=== PATIENT | male | born 1985 | race Caucasian/White ===

== ENCOUNTER 2016-06-08 14:28 | Emergency (ER) | payer OTHER ==
[~2016-06-08] VITALS: Ht 182.9 cm; Wt 80.4 kg
[2016-06-08 14:31] VITALS: BP 125/79; TEMP 36.9; Ht 182.9 cm; Wt 80.4 kg
[2016-06-08] MEDS ORDERED: XYLOCAINE 1%/SOD BICARB 20 ML VIAL INFIL ONE (14:45)
[2016-06-08] MEDS ORDERED: MONT1CHW4 PO (14:52)
[2016-06-08] MEDS ORDERED: DIPHTHERIA/TETANUS/PERTUSSIS 0.5 ML SYR/VIAL IM. ONE (15:00)
--- NOTE | 2016-06-08 15:24 | EMERGENCY ROOM VISIT NOTE ---
History First contact with patient: 14:33 Chief Complaint: LACERATION/CUT (SUT/DERMABOND) Stated Complaint: LACERATION-WORK RELATED INJURY Nursing Triage Summary: Triage note: pt reports he was cut by a saw to his right third finger at approx 1400 today. History of Present Illness The patient is a 30 year old male who presents to the Emergency Room with several complaints. The patient states that today he was at work and stepping up to get something and felt a pain in the right posterior calf. He states the pain has continued and is rated a 10/10. He denies any fevers. He is able to walk. He did not fall to the ground. He states that he contacted his mother to bring him to the hospital to evaluate the leg. He states that in the meantime he was using a saw at work and cut his right third finger on the distal aspect. He is able to move the finger. He denies any decreased sensation. He does not believe his tetanus is up-to-date. According to previous documentation, the patient does have a history of heroin abuse. The patient is adamant that he did not inject anything into the leg. Review of Systems A 10 system review of systems was completed with positives and pertinent negatives listed in the HPI. Past Medical/Surgical History Medical Problems: (1) heroin use (2) Opioid dependence (3) Polysubstance dependence (4) substance induced mood disorder Social History Smoking Status: Current Some Day Smoker Alcohol Use: occasionally Drug Use: none Occupation Status: employed Current/Historical Medications Scheduled Albuterol Hfa (Ventolin Hfa), 2-4 PUFFS INH Q6H Atenolol (Tenormin), Unknown Dose PO DAILY Cephalexin Monohydrate (Keflex), 500 MG PO TID Ergocalciferol (Vitamin D 21847 Unit), 50,000 UNIT PO WK Gabapentin (Gabapentin), 600 MG PO TID Meloxicam (Mobic), Unknown Dose PO DAILY Montelukast Sodium (Singulair Chewable), 4 MG PO DAILY Naproxen (Naprosyn), 500 MG PO BID Quetiapine Fumarate (Seroquel), 200 MG PO HS Scheduled PRN Acetaminophen/Codeine (Tylenol W/Codeine #3), 1 TAB PO for Pain Allergies Coded Allergies: Levofloxacin (Verified Allergy, Unknown, ., 06/08/16) Physical Exam Vital Signs Date Time Temp Pulse Resp B/P Pulse Ox O2 Delivery O2 Flow Rate FiO2 06/08/16 14:31 36.9 84 18 125/79 98 Room Air Physical Exam VITALS: Vitals are noted on the nurse's note and reviewed by myself. Vital signs stable. GENERAL: This is a 30-year-old male, in no acute distress, nondiaphoretic, well- developed well-nourished. SKIN: The skin was without rashes, erythema, edema, or bruising. There is no tenting of the skin. Capillary reflex less than 2 seconds. HEAD: Normocephalic atraumatic. EARS: The external ears are normal in appearance. EYES: Pupils equal round and reactive to light and accommodation. Conjunctivae without injection, sclerae without icterus. Extraocular movements intact. NOSE: Patent, turbinates without inflammation or discharge. MOUTH: Mucous membranes moist. Tonsils are not enlarged. Pharynx without erythema or exudate. Uvula midline. Airway patent. Tongue does not deviate. NECK: Supple without nuchal rigidity. No JVD. HEART: Regular rate and rhythm without murmurs gallops or rubs. LUNGS: Clear to auscultation bilaterally without wheezes, rales or rhonchi. No retractions or accessory muscle use. MUSCULOSKELETAL: There is a very small area of erythema to the right popliteal fossa. There is no ecchymosis. There is mild tenderness. There is no calf tenderness. There is no obvious palpable cord. Full range of motion without joint tenderness in all extremities. Normal gait. Strength 5/5 throughout. NEURO: Patient was alert and oriented to person place and time. No focal neurological deficits. Medical Decision & Procedures ER Provider Diagnostic Interpretation: RIGHT THIRD FINGER 3 VIEWS CLINICAL HISTORY: Pain status post laceration COMPARISON: None. DISCUSSION: 3 views reveal no acute fractures or dislocations. There is soft tissue laceration at the level of the tip of the third finger. No radiopaque foreign bodies are visualized. IMPRESSION: Distal soft tissue injury. No evidence of fracture. No foreign bodies identified. ULTRASOUND RIGHT VENOUS DOPP LOWER EXT UNILAT CLINICAL HISTORY: Right leg pain and swelling COMPARISON STUDY: No previous studies for comparison. FINDINGS: Real-time and color flow Doppler imaging were performed. Flow was seen within the femoral, popliteal and calf veins with no intraluminal thrombus demonstrated. The saphenous vein is patent. IMPRESSION: No evidence of right lower extremity DVT Medications Administered Medications (Trade) Dose Ordered Sig/[facility] Route Start Time Stop Time Status Last Admin Dose Admin Lidocaine HCl (Buffered Lidocaine 1% Inj) 20 ml [employer] ONCE INFIL 06/08/16 14:45 06/08/16 14:47 DC 06/08/16 14:45 20 ML Procedure Using sterile technique the wound was cleaned with Betadine. The area was sterilely draped. 5 ml of 1% buffered lidocaine was used to perform a digital block to anesthetize the finger. Once the patient was numb, the wound was copiously irrigated under pressure with sterile saline. The wound was explored and there were no deep structures such as tendons, bone, or ligaments present. The laceration was repaired using 11 simple interrupted 5-0 nylon sutures with the wound edges being well approximated. The patient tolerated the procedure well. The bleeding stopped. The area was cleaned with sterile saline and dressed with bacitracin ointment and bandage. ED Course The patient was seen and examined. Previous visits were reviewed. The patient presented with a 1 cm irregular and jagged laceration to the right third finger. This was repaired as above. An x-ray of the finger does not reveal any foreign body or obvious bony involvement. The patient does have tenderness in the popliteal fossa on the right. There is a small area of erythema. There is no evidence for DVT or superficial thrombophlebitis. There is no fluctuance. The patient is adamant that he has not injected anything into his leg. The patient does not have any fevers. The patient will be placed on Keflex to cover both for the slightly contaminated laceration and for the erythema to the leg. He should try anti-inflammatories. He should return to the ER with any worsening symptoms. He should have the sutures removed in 7-10 days. Medical Decision The differential diagnosis includes open finger fracture, finger fracture, foreign body, finger laceration, DVT, superficial thrombophlebitis, abscess, cellulitis, among others Impression Primary Impression: Laceration Additional Impression: Calf pain Departure Information Dispostion Home / Self-Care Condition GOOD Prescriptions Cephalexin Monohydrate (Keflex) 500 Mg Cap 500 MG PO TID for 7 Days, #21 CAP Prov: Felicita Vale PA-C 06/08/16 Referrals Gonzalez Farmer PA-C (PCP) Patient Instructions Cellulitis - [facility], ED Laceration All, [facility] Additional Instructions Ibuprofen 600 mg every 6-8 hours for moderate pain Keflex every 8 hours for 7 days to treat potential infection in the leg and to prevent infection in the finger Keep wound clean and dry. Do not allow any crusting or dried blood to accumulate on sutures. If this occurs, use a 1:1 solution of hydrogen peroxide/ water on a Q-tip to clean the wound. Use an antibiotic ointment for 3-4 days, then let wound dry. Suture removal in 7-10 days. Return sooner for any signs of infection (increasing redness, swelling, drainage). Ice and elevate for swelling and pain. Keep covered when in sun until sutures removed then SPF 50 or higher for one year. Vitamin E oil if desired two weeks after suture removal for reduction of scar. Problem Qualifiers Additional Impression: Calf pain Laterality: right Qualified Codes: M79.661 - Pain in right lower leg
--- NOTE | 2016-06-08 15:44 | DIAGNOSTIC IMAGING REPORT ---
ULTRASOUND RIGHT VENOUS DOPP LOWER EXT UNILAT CLINICAL HISTORY: Right leg pain and swelling COMPARISON STUDY: No previous studies for comparison. FINDINGS: Real-time and color flow Doppler imaging were performed. Flow was seen within the femoral, popliteal and calf veins with no intraluminal thrombus demonstrated. The saphenous vein is patent. IMPRESSION: No evidence of right lower extremity DVT Electronically signed by: Washington Ying M.D. 06/08/2016 3:43 PM Dictated Date/Time: 06/08/2016 3:43 PM
--- NOTE | 2016-06-08 15:49 | DIAGNOSTIC IMAGING REPORT ---
RIGHT THIRD FINGER 3 VIEWS CLINICAL HISTORY: Pain status post laceration COMPARISON: None. DISCUSSION: 3 views reveal no acute fractures or dislocations. There is soft tissue laceration at the level of the tip of the third finger. No radiopaque foreign bodies are visualized. IMPRESSION: Distal soft tissue injury. No evidence of fracture. No foreign bodies identified. Electronically signed by: Washington Ying M.D. 06/08/2016 3:47 PM Dictated Date/Time: 06/08/2016 3:47 PM
[2016-06-08] MEDS ORDERED: CEPH500C PO (16:00)
[2016-06-08] MEDS ORDERED: IBUPROFEN 600 MG TAB PO STA (16:45)
[2016-06-08 17:00] VITALS: PULSE 78; O2SAT 98
== END 2016-06-08 17:01 | disposition home or self-care (01) ==
LOC: C.EDB 14:29 → C.EDD 17:01
DX: S61.212A Laceration without foreign body of right middle finger without damage to nail, initial encounter (principal); M79.661 Pain in right lower leg; X58.XXXA Exposure to other specified factors, initial encounter; Y99.0 Civilian activity done for income or pay; F11.20 Opioid dependence, uncomplicated; F17.200 Nicotine dependence, unspecified, uncomplicated; Z23 Encounter for immunization

== ENCOUNTER 2016-06-11 12:15 | Emergency (ER) | payer OTHER ==
[~2016-06-11] VITALS: Ht 182.9 cm; Wt 81.2 kg
[~2016-06-11 12:15] MED LIST: CEPH500C PO; MONT1CHW4 PO
[2016-06-11 12:18] VITALS: TEMP 36.5; Ht 182.9 cm; Wt 81.2 kg
[2016-06-11] MEDS ORDERED: SNG10 PO (12:52)
[2016-06-11] MEDS ORDERED: OXYCODONE/ACETAMINOPHEN 5-325 TAB PO STA (12:52)
[2016-06-11] MEDS ORDERED: AMPICILLIN/SULBACTAM SOD INJ 3,000 MG in SODIUM CHLORIDE 0.9% 100ML 100 ML IV STA (13:05)
[2016-06-11 13:20] LABS: BASO % 0.5 %; BASO ABS # 0.03 K/uL (0-0.2); COMPLETE YES; EOS % 3.1 %; HEMATOCRIT 35.6 % (42-52); IG% 0.2 %; LYMPH % 43.9 %; LYMPH ABS # 2.84 K/uL (1.2-3.4); MEAN CELL VOLUME 88.8 fL (80-100); MEAN CORPUSCULAR HEMOGLOBIN 29.9 pg (25-34); MEAN CORPUSCULAR HGB CONC 33.7 g/dl (32-36); MONO % 6.6 %; NEUT % 45.7 %; PLATELET COUNT 213 K/uL (130-400); RED BLOOD COUNT 4.01 M/uL (4.7-6.1); WHITE BLOOD COUNT 6.47 K/uL (4.8-10.8)
[2016-06-11 13:43] LABS: CALCIUM 8.7 mg/dl (8.5-10.1); CREATININE 0.83 mg/dl (0.60-1.40); POTASSIUM 4.1 mmol/L (3.5-5.1)
[2016-06-11] MEDS ORDERED: AMOX875T PO (13:57)
[2016-06-11] MEDS ORDERED: OXYC-57 PO (13:57)
--- NOTE | 2016-06-11 14:00 | EMERGENCY ROOM VISIT NOTE ---
History First contact with patient: 12:28 Chief Complaint: WOUND INFECTION Stated Complaint: RIGHT MIDDLE FINGER History of Present Illness The patient is a 30 year old male who presents to the Emergency Room via private vehicle with complaints of "right middle finger". The patient states that he was here Tuesday for a right middle finger laceration, and believes his fingers noninfected. He states that since then he's been taking the Keflex which he has been prescribed as well as Motrin without relief. He feels that the finger is very swollen now and is waking him up from his sleep. He rates the pain as an 8/10 and points to the distal tip of the right middle finger as a location of the pain. There has been some drainage. There is minimal bleeding. He denies any redness extending up the wrist. The pain extends to the PIP joint. He denies fevers or chills. Review of Systems A complete 6-point Review of Systems was discussed with the patient, with pertinent positives and negatives listed in the History of Present Illness. All remaining Review of Systems questions can be considered negative unless otherwise specified. Past Medical/Surgical History Medical Problems: (1) heroin use (2) Opioid dependence (3) Polysubstance dependence (4) substance induced mood disorder Social History Smoking Status: Current Every Day Smoker Alcohol Use: occasionally Drug Use: none Occupation Status: employed Current/Historical Medications Scheduled Albuterol Hfa (Ventolin Hfa), 2-4 PUFFS INH Q6H Amoxicillin & Pot Clavulanate (Augmentin 875-125 mg), 1 TAB PO BID Atenolol (Tenormin), Unknown Dose PO DAILY Cephalexin Monohydrate (Keflex), 500 MG PO TID Ergocalciferol (Vitamin D 31810 Unit), 50,000 UNIT PO WK Gabapentin (Gabapentin), 600 MG PO TID Meloxicam (Mobic), Unknown Dose PO DAILY Montelukast Sod (Montelukast Sodium), 10 MG PO DAILY Naproxen (Naprosyn), 500 MG PO BID Quetiapine Fumarate (Seroquel), 200 MG PO HS Scheduled PRN Acetaminophen/Codeine (Tylenol W/Codeine #3), 1 TAB PO for Pain Oxycodone/Acetaminophen 5MG/325MG (Percocet 5MG/325MG), 1 TAB PO Q6 PRN for Pain Allergies Coded Allergies: Hydrocodone (Unverified Allergy, Unknown, SWELLING IN FEET, 06/11/16) Levofloxacin (Verified Allergy, Unknown, ., 06/11/16) Tramadol (Unverified Allergy, Unknown, EMOTIONAL, 06/11/16) Physical Exam Vital Signs Date Time Temp Pulse Resp B/P Pulse Ox O2 Delivery O2 Flow Rate FiO2 06/11/16 14:21 56 18 143/97 98 06/11/16 12:18 36.5 58 18 143/91 99 Room Air Physical Exam VITAL SIGNS - Vital signs and nursing notes were reviewed. Patient is afebrile , blood pressure of 143/91, non-tachycardic and saturating well on room air at 99%. GENERAL -30-year-old male appearing his stated age who is in no acute distress. Communicates well with provider and answers questions appropriately. SKIN - Without rashes. There is erythema of the distal right middle finger extending from the PIP distally. There is evidence of intact suture material with minimal infection as evidenced by whitish/yellow skin flap over top. There is no active drainage noted. HEAD - NC/AT. EXTREMITIES - No clubbing or peripheral cyanosis. No pretibial edema present. Patient is vascular intact in the right upper extremity. +5/5 strength noted in UE/LE bilaterally. There is tenderness to palpation overlying the distal right middle finger. No lymphangitic streaking or pain into the hand or wrist. Arm is unremarkable. Medical Decision & Procedures Laboratory Results 06/11/16 13:13 Red Blood Count 4.01, Mean Corpuscular Volume 88.8, Mean Corpuscular Hemoglobin 29.9, Mean Corpuscular Hemoglobin Concent 33.7, Mean Platelet Volume 9.0, Neutrophils (%) (Auto) 45.7, Lymphocytes (%) (Auto) 43.9, Monocytes (%) (Auto) 6.6, Eosinophils (%) (Auto) 3.1, Basophils (%) (Auto) 0.5, Neutrophils # (Auto) 2.96, Lymphocytes # (Auto) 2.84, Monocytes # (Auto) 0.43, Eosinophils # (Auto) 0.20, Basophils # (Auto) 0.03 06/11/16 13:13 Test 06/11/16 13:13 White Blood Count 6.47 K/uL (4.8-10.8) Red Blood Count 4.01 M/uL (4.7-6.1) Hemoglobin 12.0 g/dL (14.0-18.0) Hematocrit 35.6 % (42-52) Mean Corpuscular Volume 88.8 fL (80-100) Mean Corpuscular Hemoglobin 29.9 pg (25-34) Mean Corpuscular Hemoglobin Concent 33.7 g/dl (32-36) Platelet Count 213 K/uL (130-400) Mean Platelet Volume 9.0 fL (7.4-10.4) Neutrophils (%) (Auto) 45.7 % Lymphocytes (%) (Auto) 43.9 % Monocytes (%) (Auto) 6.6 % Eosinophils (%) (Auto) 3.1 % Basophils (%) (Auto) 0.5 % Neutrophils # (Auto) 2.96 K/uL (1.4-6.5) Lymphocytes # (Auto) 2.84 K/uL (1.2-3.4) Monocytes # (Auto) 0.43 K/uL (0.11-0.59) Eosinophils # (Auto) 0.20 K/uL (0-0.5) Basophils # (Auto) 0.03 K/uL (0-0.2) RDW Standard Deviation 43.6 fL (36.4-46.3) RDW Coefficient of Variation 13.4 % (11.5-14.5) Immature Granulocyte % (Auto) 0.2 % Immature Granulocyte # (Auto) 0.01 K/uL (0.00-0.02) Anion Gap 7.0 mmol/L (3-11) Est Creatinine Clear Calc Drug Dose 141.6 ml/min Estimated GFR () 135.9 Estimated GFR (Non- 117.2 BUN/Creatinine Ratio 14.0 (10-20) Calcium Level 8.7 mg/dl (8.5-10.1) Medications Administered Medications (Trade) Dose Ordered Sig/[facility] Route Start Time Stop Time Status Last Admin Dose Admin Oxycodone/ Acetaminophen 1 tab 1 tab NOW STAT PO 06/11/16 12:52 06/11/16 12:53 DC 06/11/16 13:03 1 TAB Ampicillin Sodium/ Sulbactam Sodium/ Sodium Chloride (Unasyn Inj/Nss 100ml) 108 ml @ 200 mls/hr NOW STAT IV 06/11/16 13:05 06/11/16 13:37 DC 06/11/16 13:30 200 MLS/HR Medical Decision Patient was seen and evaluated as above. After obtaining a thorough history and physical examination IV access obtained and a CBC, PRP, Percocet tablet and 3 g of Unasyn were given secondary to subjective and objective examination findings. Patient noted that he would like something for his pain and was not driving and it was identified that he has had Percocet in the past without difficulty. Patient has a cellulitis of his recent laceration repair and appeared to fail outpatient oral antibiotic management with Keflex. Because of this finding I did give him 3 g of Unasyn. He was reevaluated and noted be feeling better after the pain medication. He was also evaluated by my attending. I did elect to remove 3 or 4 of the sutures to help alleviate some of the pressure at the distal tip of the right third digit. He will be discharged with Augmentin 1 tab by mouth twice a day 10 days. He is to return with any worsening of symptoms. This was discussed in great detail. The patient requested something for pain at home and it was evident that he had already had Tylenol with codeine prescribed therefore only gave him 10 tablets of Percocet for his breakthrough pain. He was instructed to not drive or operate machinery while on these medications. He is to take the Augmentin. He is to follow-up with a hand specialist by calling the phone number he was provided today. He again is to return with any new/concerning symptoms. He was educated upon worrisome symptoms in which to return, had questions answered prior to discharge, and was discharged home in good condition. CBC reveals no leukocytosis but slight anemia. PRP was unremarkable. There was no evidence of abscess. Patient was afebrile and I believe can be managed in the outpatient setting. He was instructed to return if worsening of his symptoms for potential additional IV antibiotics. In evaluation treatment of this patient the following differential diagnoses were entertained: Cellulitis, sepsis, abscess, among others. [place] Drug Monitoring Program Search Results: patient reviewed within database, see additional documentation Impression Primary Impression: Cellulitis Additional Impression: Anemia Departure Information Dispostion Home / Self-Care Condition GOOD Prescriptions Oxycodone/Acetaminophen 5MG/325MG (PERCOCET 5MG/325MG) Tab 1 TAB PO Q6 Y for Pain, #10 TAB For Initial Treatment Prov: Manjinder Rosa PA-C 06/11/16 Amoxicillin & Pot Clavulanate (Augmentin 875-125 mg) 1 Tab Tab 1 TAB PO BID for 10 Days, #20 TAB Prov: Manjinder Rosa PA-C 06/11/16 Referrals Gonzalez Farmer PA-C (PCP) Placido Blake MD Patient Instructions [facility] Additional Instructions You were seen in the emergency Department for an infection of your finger. You were given 3 g of Unasyn here. 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 This is one tablet twice daily for 10 days. You've been given the number for orthopedic hand specialist. Please call the number as soon as possible schedule follow-up and tell them you were seen here in the emergency department. Please refer to your initial paperwork regarding management of the sutures and removal. If the redness, swelling and pain would worsen please return to the emergency Department immediately. You were slightly anemic here today. These have these labs repeated with your family doctor. Please return to the emergency department with any new/concerning symptoms.. Problem Qualifiers Primary Impression: Cellulitis Site of cellulitis: extremity Site of cellulitis of extremity: finger Laterality: right Qualified Codes: L03.011 - Cellulitis of right finger
[2016-06-11 14:21] VITALS: BP 143/97; PULSE 56; O2SAT 98
[2016-06-11] MEDS ORDERED: ACET-749 PO (14:52)
[2016-06-11] MEDS ORDERED: NRN600 PO (14:52)
[2016-06-11] MEDS ORDERED: ERGO500037 PO (14:52)
[2016-06-11] MEDS ORDERED: ATEN-173 PO (14:52)
[2016-06-11] MEDS ORDERED: NAPR-1169 PO (14:52)
[2016-06-11] MEDS ORDERED: MELO7.5T7 PO (14:52)
[2016-06-11] MEDS ORDERED: VNTHFA/IN INH (14:52)
[2016-06-11] MEDS ORDERED: SRQ200 PO (14:52)
== END 2016-06-11 14:22 | disposition home or self-care (01) ==
LOC: C.EDB 12:16 → C.EDD 14:22
DX: L03.011 Cellulitis of right finger (principal); D64.9 Anemia, unspecified; F11.10 Opioid abuse, uncomplicated; F17.200 Nicotine dependence, unspecified, uncomplicated

== ENCOUNTER 2016-10-21 23:06 | Emergency (ER) | payer OTHER ==
[~2016-10-21] VITALS: Ht 182.9 cm; Wt 76.4 kg
[~2016-10-21 23:06] MED LIST changes: +ACET-749 PO; +ATEN-173 PO; -CEPH500C PO; +ERGO500037 PO; +MELO7.5T7 PO; -MONT1CHW4 PO; +NAPR-1169 PO; +NRN600 PO; +OXYC-57 PO; +SNG10 PO; +SRQ200 PO; +VNTHFA/IN INH
[2016-10-21 23:26] VITALS: TEMP 36.8; Ht 182.9 cm; Wt 76.4 kg
[2016-10-21] MEDS ORDERED: OXYCODONE/ACETAMINOPHEN 5-325 TAB PO STA (23:44)
[2016-10-22] MEDS ORDERED: PERCOCET HOME PACK PO STA (00:15)
[2016-10-22] MEDS ORDERED: OXYC-57 PO (00:18)
--- NOTE | 2016-10-22 00:21 | EMERGENCY ROOM VISIT NOTE ---
History First contact with patient: 23:30 Chief Complaint: LEG PAIN,LEG INJURY Stated Complaint: RT ANKLE AND CALF GOT HIT DURING BASEBALL GAME History of Present Illness The patient is a 31 year old male who presents to the Emergency Room via private vehicle with complaints of "right ankle and calf got hit during baseball game". The patient states that this evening around 7:30 PM, he was playing right feel, when he collided with a second baseman. He states that their cleats locked, causing him to roll his ankle, and some squiggly developed pain in the right lateral proximal calf. He has tried ice and heat with minimal relief. He did take a gabapentin tablet which was not helpful. He rates the pain as an 8/10 and is "killer". He states he has also tried lidocaine cream without relief. He denies any fevers, chills, nausea, headache , loss of consciousness, striking his head. Review of Systems A complete 6-point Review of Systems was discussed with the patient, with pertinent positives and negatives listed in the History of Present Illness. All remaining Review of Systems questions can be considered negative unless otherwise specified. Past Medical/Surgical History Medical Problems: (1) heroin use (2) Opioid dependence (3) Polysubstance dependence (4) substance induced mood disorder Family History No pertinent family history at this time. Social History Smoking Status: Former Smoker Alcohol Use: occasionally Drug Use: none Occupation Status: employed Current/Historical Medications Scheduled Albuterol Hfa (Ventolin Hfa), 2-4 PUFFS INH Q6H Atenolol (Tenormin), Unknown Dose PO DAILY Ergocalciferol (Vitamin D 31636 Unit), 50,000 UNIT PO WK Gabapentin (Gabapentin), 600 MG PO TID Meloxicam (Mobic), Unknown Dose PO DAILY Montelukast Sod (Montelukast Sodium), 10 MG PO DAILY Naproxen (Naprosyn), 500 MG PO BID Quetiapine Fumarate (Seroquel), 200 MG PO HS Scheduled PRN Acetaminophen/Codeine (Tylenol W/Codeine #3), 1 TAB PO for Pain Oxycodone/Acetaminophen 5MG/325MG (Percocet 5MG/325MG), 1 TAB PO Q6 PRN for Pain Oxycodone/Acetaminophen 5MG/325MG (Percocet 5MG/325MG), 1 TAB PO Q6 PRN for Pain Allergies Coded Allergies: Hydrocodone (Unverified Allergy, Unknown, SWELLING IN FEET, 06/11/16) Levofloxacin (Verified Allergy, Unknown, ., 06/11/16) Tramadol (Unverified Allergy, Unknown, EMOTIONAL, 06/11/16) Physical Exam Vital Signs Date Time Temp Pulse Resp B/P (MAP) Pulse Ox O2 Delivery O2 Flow Rate FiO2 10/22/16 01:25 78 20 128/72 98 10/21/16 23:26 36.8 85 18 124/80 95 Room Air Physical Exam VITAL SIGNS - Vital signs and nursing notes were reviewed. Patient is afebrile , normotensive, non-tachycardic and saturating well on room air 95%. GENERAL -31-year-old male appearing his stated age who is in no acute distress. Communicates well with provider and answers questions appropriately. SKIN - Without rashes. Skin overlying the right leg is intact. EXTREMITIES - No clubbing or peripheral cyanosis. No pretibial edema present. There is a palpable step-off in the right proximal fibular region. There is tenderness to this region as well as extending down the calf. No evidence of compartment syndrome. He is neurovascularly intact in this extremity. There is tenderness to palpation overlying the ankle joint. Medical Decision & Procedures ER Provider Diagnostic Interpretation: X-ray of the right tibia and fibula as well as right ankle are obtained. As read by myself, there is a mildly displaced right proximal fibular fracture that is in near anatomic alignment. No fracture of the tibia. Ankle unremarkable. Medications Administered Medications (Trade) Dose Ordered Sig/Halle Route Start Time Stop Time Status Last Admin Dose Admin Oxycodone/ Acetaminophen (Percocet 5-325mg Tab) 1 tab NOW STAT PO 10/21/16 23:44 10/21/16 23:45 DC 10/21/16 23:44 1 TAB Oxycodone/ Acetaminophen (Percocet 5/ 325MG Home Pack) 1 homepack UD STAT PO 10/22/16 00:15 10/22/16 00:18 DC 10/22/16 00:46 1 HOMEPACK Medical Decision Patient was seen and evaluated as above. After obtaining a thorough history and physical examination radiographs were obtained of the affected regions. There is a proximal fibular fracture, this is closed. No evidence of compartment syndrome. He was educated upon worrisome symptoms of compartment syndrome. He is to return if he develops these. He was given 1 Percocet tablet for his pain after verifying that he can take these without allergy. I did discuss the case with my attending, and after discussing whether or not to use a knee immobilizer or Ortho-Glass splint the decision was made to utilize an Ortho-Glass splint. A posterior long-leg splint was affixed, with good fit. He was provided crutches and educated on use. He'll be given a short-term prescription for Percocet secondary to his fracture and pain. He is to follow- up with orthopedics tomorrow by calling first thing with number provided. He was educated upon worrisome symptoms which to return, had questions prior to discharge, and was discharged home in good condition. In the evaluation treatment this patient following differential diagnoses entertained: Knee sprain, fibular fracture, ankle fracture, among others. [facility] Drug Monitoring Program Search Results: patient reviewed within database, no issues identified Impression Primary Impression: Fracture, fibula, proximal Departure Information Dispostion Home / Self-Care Condition GOOD Prescriptions Oxycodone/Acetaminophen 5MG/325MG (PERCOCET 5MG/325MG) Tab 1 TAB PO Q6 Y for Pain, #10 TAB For Initial Treatment Prov: Manjinder Rosa PA-C 10/22/16 Referrals No Doctor, Assigned (PCP) Jamie Gurrola M.D. Patient Instructions My [facility] Additional Instructions You have been treated in the Emergency Department for knee pain. You have received pain medicine in the emergency department which impairs your ability to operate a vehicle. It is illegal for you to drive after receiving these medicines. You have been prescribed PERCOCET to be used for pain control. This is a narcotic medication. You cannot drive or consume alcohol while on this medicine. This medicine should only be used for pain that cannot be controlled with [id number] pain medicines. Please do not take the Tylenol with the Percocet. For pain control, you can use the following xcoc-ejh-bjdzrss medicines (if >12 yo): - Regular strength (325mg/tab) Tylenol (acetaminophen) 2 tabs every 4-6 hours as needed. Do not exceed 12 tablets in a 24 hour period. Avoid taking more than 3 grams (3000 mg) of Tylenol per day. This includes any other sources of acetaminophen you may take on a regular basis. Please do not take the Tylenol with the Percocet. - Regular strength (200 mg/tab) Advil (ibuprofen) 1-2 tabs every 4-6 hours as needed. Do not exceed a dose of 3200 mg per day. If this is a recent injury (<24 hrs), ice can be applied to the area of pain for the first 3 days to help decrease pain and inflammation. Ice massages can be performed by freezing water in a paper cup, peeling back the cup to expose the ice and then massaging over the affected area. You have been provided the number for an Orthopaedic Surgeon. You should call this number as soon as possible to establish a follow-up visit from today's Emergency Department visit. Keep the knee brace in place until cleared by Orthopedics. Use the crutches you have been provided to keep ALL weight off of the knee until weight bearing is tolerable. Return to the Emergency Department if your current symptoms worsen despite treatment course outlined above. Please return to the emergency department with any new/concerning symptoms.
[2016-10-22 01:25] VITALS: BP 128/72; PULSE 78; O2SAT 98
--- NOTE | 2016-10-22 06:38 | DIAGNOSTIC IMAGING REPORT ---
RIGHT ANKLE MIN 3 VIEWS ROUTINE CLINICAL HISTORY: Right leg trauma, ankle pain Right trauma COMPARISON: None. DISCUSSION: The bones and joint spaces appear intact. There is no evidence of fracture, dislocation or bony disease. There is no evidence for soft tissue swelling. IMPRESSION: Negative study. Electronically signed by: Fausto Danielson M.D. 10/22/2016 6:37 AM Dictated Date/Time: 10/22/2016 6:34 AM
--- NOTE | 2016-10-22 06:42 | DIAGNOSTIC IMAGING REPORT ---
RIGHT TIBIA/FIBULA 2 VIEWS ROUTINE CLINICAL HISTORY: Right leg trauma, proximal fibula Right COMPARISON: None. DISCUSSION: Oblique fracture proximal fibula. Remaining osseous structures are unremarkable. Mild soft tissue edema. IMPRESSION: Oblique fracture proximal fibula. Electronically signed by: Fausto Danielson M.D. 10/22/2016 6:41 AM Dictated Date/Time: 10/22/2016 6:40 AM
== END 2016-10-22 01:30 | disposition home or self-care (01) ==
LOC: C.EDB 23:08 → C.EDC 10-22 01:30
DX: S82.401A Unspecified fracture of shaft of right fibula, initial encounter for closed fracture (principal); Y93.64 Activity, baseball; W51.XXXA Accidental striking against or bumped into by another person, initial encounter; Y92.320 Baseball field as the place of occurrence of the external cause; F11.10 Opioid abuse, uncomplicated; Z87.891 Personal history of nicotine dependence; Z79.899 Other long term (current) drug therapy

== ENCOUNTER 2016-11-02 14:30 | Emergency (ER) | payer SELFPAY ==
[~2016-11-02] VITALS: Ht 182.9 cm; Wt 77.5 kg
[2016-11-02 14:32] VITALS: TEMP 36.6; Ht 182.9 cm; Wt 77.5 kg
[2016-11-02] MEDS ORDERED: OXYCODONE HCL IR 5 MG TAB (IMMEDIATE RELEASE) PO STA (14:52)
--- NOTE | 2016-11-02 15:52 | DIAGNOSTIC IMAGING REPORT ---
ULTRASOUND RIGHT LOWER EXTREMITY VENOUS CLINICAL HISTORY: Right leg pain. COMPARISON STUDY: Right lower extremity venous ultrasound dated 06/08/2016. TECHNIQUE: Real-time, grayscale, and color Doppler sonography of the deep veins of the right lower extremity was performed from the inguinal crease to the calf. Compression and augmentation were utilized. FINDINGS: There is no sonographic evidence of deep venous thrombosis identified in the right lower extremity. The common femoral, superficial femoral, and popliteal veins are patent and normally compressible. The greater saphenous vein and the profunda femoris vein at the junction with the common femoral vein are clear. The visualized calf veins are patent. IMPRESSION: There is no sonographic evidence of deep venous thrombosis identified in the right lower extremity. Electronically signed by: Timothy Scott M.D. 11/02/2016 3:51 PM Dictated Date/Time: 11/02/2016 3:41 PM
[2016-11-02] MEDS ORDERED: ACET300T2 PO (16:40)
--- NOTE | 2016-11-02 16:43 | EMERGENCY ROOM VISIT NOTE ---
History First contact with patient: 14:37 Chief Complaint: LEG PAIN,LEG INJURY Stated Complaint: PAIN/SWELLING TO RIGHT LEG History of Present Illness The patient is a 31 year old male who presents to the Emergency Room with complaints of right leg pain and swelling. The patient states that he sustained a proximal fibula fracture on 10/21/16. He followed up with orthopedics 1 week ago and states that they placed him in a knee brace and on crutches. He states that since then, he has had intermittent swelling of the legs, pain in the outside of the leg and feeling like his leg is cold. He states the pain has been constant over the past one week and rates the discomfort an 8.5/10. He reports that they prescribed him naproxen which he has been taking without relief. He feels like there is redness on the inside of the leg. He denies any history of blood clots. He is not a smoker. He denies any further injuries to the leg. Review of Systems A complete 10 point review of systems was reviewed with the patient with pertinent positives and negatives as per history of present illness. All else were negative. Past Medical/Surgical History Medical Problems: (1) heroin use (2) Opioid dependence (3) Polysubstance dependence (4) substance induced mood disorder Social History Smoking Status: Never Smoker Alcohol Use: occasionally Drug Use: none Occupation Status: employed Current/Historical Medications Scheduled Albuterol Hfa (Ventolin Hfa), 2-4 PUFFS INH Q6H Atenolol (Tenormin), Unknown Dose PO DAILY Ergocalciferol (Vitamin D 72054 Unit), 50,000 UNIT PO WK Gabapentin (Gabapentin), 600 MG PO TID Meloxicam (Mobic), Unknown Dose PO DAILY Montelukast Sod (Montelukast Sodium), 10 MG PO DAILY Naproxen (Naprosyn), 500 MG PO BID Quetiapine Fumarate (Seroquel), 200 MG PO HS Scheduled PRN Acetaminophen W/ Codeine (Tylenol W/Codeine #3), 1 TAB PO Q6H PRN for Pain Acetaminophen/Codeine (Tylenol W/Codeine #3), 1 TAB PO for Pain Allergies Coded Allergies: Hydrocodone (Unverified Allergy, Unknown, SWELLING IN FEET, 11/02/16) Levofloxacin (Verified Allergy, Unknown, ., 11/02/16) Tramadol (Unverified Allergy, Unknown, EMOTIONAL, 11/02/16) Physical Exam Vital Signs Date Time Temp Pulse Resp B/P (MAP) Pulse Ox O2 Delivery O2 Flow Rate FiO2 11/02/16 16:57 68 18 130/83 96 11/02/16 14:32 36.6 93 17 137/84 99 Room Air Physical Exam VITALS: Vitals are noted on the nurse's note and reviewed by myself. Vital signs stable. GENERAL: This is a 31-year-old male, in no acute distress, nondiaphoretic, well- developed well-nourished. HEART: Regular rate and rhythm without murmurs gallops or rubs. LUNGS: Clear to auscultation bilaterally without wheezes, rales or rhonchi. EXTREMITIES: The skin is warm and well-perfused. There is tenderness to palpation of the proximal fibula head. There is mild tenderness along the length of the fibula. There is no erythema noted. Capillary refill within 2 seconds. Dorsalis pedis pulses 2+. NEURO: Patient was alert and oriented to person place and time. Medical Decision & Procedures ER Provider Diagnostic Interpretation: ULTRASOUND RIGHT LOWER EXTREMITY VENOUS CLINICAL HISTORY: Right leg pain. COMPARISON STUDY: Right lower extremity venous ultrasound dated 06/08/2016. TECHNIQUE: Real-time, grayscale, and color Doppler sonography of the deep veins of the right lower extremity was performed from the inguinal crease to the calf. Compression and augmentation were utilized. FINDINGS: There is no sonographic evidence of deep venous thrombosis identified in the right lower extremity. The common femoral, superficial femoral, and popliteal veins are patent and normally compressible. The greater saphenous vein and the profunda femoris vein at the junction with the common femoral vein are clear. The visualized calf veins are patent. IMPRESSION: There is no sonographic evidence of deep venous thrombosis identified in the right lower extremity. Medications Administered Medications (Trade) Dose Ordered Sig/Halle Route Start Time Stop Time Status Last Admin Dose Admin Oxycodone HCl (Roxicodone Immediate Rel Tab) 5 mg NOW STAT PO 11/02/16 14:52 11/02/16 14:54 DC 11/02/16 15:13 5 MG Medical Decision Differential diagnosis includes DVT, superficial thrombosis, compartment syndrome, cellulitis, among others. The patient was evaluated as above. He was given 1 tablet of OxyIR for pain. Ultrasound of the leg was performed and read by radiology with no DVT identified. The patient clinically does not have an exam consistent with compartment syndrome. He has good pulses and normal capillary refill. I believe that his pain is likely just secondary to the fracture that he sustained. He was given a short course of pain medication but instructed to follow-up with orthopedics for any further pain control. He currently sees [facility] orthopedics and was instructed to call them today to schedule a follow-up appointment. He verbalized understanding of my assessment and treatment plan was discharged home in good condition. Medication reconciliation: I attest that I have personally reviewed the patient 's current medication list. Blood Pressure Screening: Patient was found to have a slightly elevated blood pressure due to circumstances. I do not believe that the patient requires hypertension monitoring. [facility] Drug Monitoring Program Search Results: patient reviewed within database (has received monthly rx from PCP in the past; recent rx from ER provider ) Impression Primary Impression: Leg pain, right Departure Information Dispostion Home / Self-Care Condition GOOD Prescriptions Acetaminophen W/ Codeine (TYLENOL W/CODEINE #3) 1 Tab Tab 1 TAB PO Q6H Y for Pain, #8 TAB Prov: Piedad Craig ., SUSAN 11/02/16 Referrals No Doctor, Assigned (PCP) Higinio Cantrell MD Patient Instructions My [facility] Additional Instructions Call [facility] orthopedics to schedule follow up. For pain control, you can use the following asph-bsq-wjyhfit medicines (if >12 yo): - Regular strength (325mg/tab) Tylenol (acetaminophen) 2 tabs every 4-6 hours as needed. Do not exceed 12 tablets in a 24 hour period. Avoid taking more than 4 grams (4000 mg) of Tylenol per day. This includes any other sources of acetaminophen you may take on a regular basis. - Regular strength (200 mg/tab) Advil (ibuprofen) 1-2 tabs every 4-6 hours as needed. Do not exceed a dose of 3200 mg per day. Return here for any worsening or new/concerning symptoms.
[2016-11-02 16:57] VITALS: BP 130/83; PULSE 68; O2SAT 96
== END 2016-11-02 16:59 | disposition home or self-care (01) ==
LOC: C.EDB 14:31
DX: S82.401D Unspecified fracture of shaft of right fibula, subsequent encounter for closed fracture with routine healing (principal); M79.604 Pain in right leg; W51.XXXD Accidental striking against or bumped into by another person, subsequent encounter; F11.10 Opioid abuse, uncomplicated; Z87.891 Personal history of nicotine dependence; Z79.899 Other long term (current) drug therapy

== ENCOUNTER 2020-02-05 01:56 | Inpatient (IN) ==
--- NOTE | 2020-02-05 02:23 | Emergency Department Note ---
Impression & Plan Mood disorder ED Provider Note NAME: NORRIS VERDUGO AGE: 34 SEX: M ARRIVES VIA: Police Cruiser INFORMANT: Patient, [facility] ED PROVIDER(S): Yusra Elder DO CHIEF COMPLAINT: Suicidal and homicidal threats PLAN: Disposition: The patient was signed out to Dr. Bustos at change of shift Condition: Stable MEDICAL DECISION MAKING: This is a 34-year-old male patient brought to the emergency department tonight on a 302 by state police after making threats of self-harm. The patient told his mother that he was going to get a gun to harm himself and his family The patient was medically cleared but was sleeping and difficult to arouse and a full psychiatric evaluation could not be completed. Once he is more awake, he will be evaluated by the ED psychiatric telephonic case manager and disposition will be d etermined. Triage Nursing notes reviewed and agree them. Additional history obtained from [facility] police Prior medical records reviewed Vital Signs: reviewed and unremarkable Differential diagnosis: Drug intoxication, sleep deprivation, mood disorder, thought disorder Laboratory studies: See below HPI: 34/M arrives for evaluation of suicidal threats. The patient explains that he is having relationship issues with his . Apparently she has suffered a recent miscarriage and he states that this was very hard on them. He explained that he was not sure if this child was his or not and they had been arguing about this. He admits that he does frequently make suicidal threats but does not ever plan to act on them. His mother petitioned a 302 and the state police found him passed out in his truck approximately 1 mile away from his home. The petitioning statement noted that the patient threatened to get a gun and harm his family and himself. ROS: See above HPI for pertinent positives & negatives. A total of 10 systems reviewed and were otherwise negative. PAST MEDICAL HISTORY:See Below PAST SURGICAL HISTORY:See Below FAMILY HISTORY:See Below SOCIAL HISTORY:See Below HOME MEDICATIONS:See list ALLERGIES:See list VITALS:See Below PHYSICAL EXAMINATION: HEENT: Head - normocephalic and atraumatic. Eyes-extraocular eye muscles are intact, and sclera are anicteric. There is moderate scleral injection. Nose - moist nasal mucosa without discharge. Neck: Supple; no cervical lymphadenopathy Heart: Regular rate and rhythm. There is a normal S1 and S2 with no murmurs, clicks, or gallops appreciated. Lungs: Clear to auscultation bilaterally with no wheezes, rales, or rhonchi. Abdomen: Soft, completely nontender, nondistended, with good bowel sounds. There are no palpable pulsatile masses or hepatosplenomegaly. There is no guarding, rigidity, or rebound noted. Extremities: No evidence of cyanosis, clubbing, or edema. There are easily palpable peripheral pulses. Skin: warm and dry with good turgor and no rashes. Psych: Normal affect. The patient does seem to be slightly depressed and tired. He does admit to smoking marijuana and using meth 2 days ago. He does admit to cutting himself in the past but no recent suicide attempts. ED COURSE: Times/Reassessments: 0200: The patient was evaluated in room A6. I discussed the case with the [facility] troopers who brought the patient here to the emergency department. Laboratory studies were drawn as above. Patient was medically cleared but was sleeping. He was difficult to arouse and stated that he was exhausted from work yesterday. ED psychiatric telephonic case manager attempted to evaluate the patient but could not carry on a coherent conversation with the patient. 0745: The case was signed out to Dr. Bustos at change of shift awaiting evaluation once the patient was more awake. Yusra Elder DO Past Med/Surg History Medical History (Updated 02/05/20 @ 07:52 by Yusra Elder DO) Anemia Bleeding hemorrhoid Cellulitis Chronic back pain Dental caries Hemorrhoids Hypertension Leg pain, right Opioid dependence on agonist therapy Pain, dental Surgical History History of hernia repair Family History Grandmother Hypertension Grandfather (Paternal) Heart disease Father Stroke Social History Smoking Status: Current every day smoker Tobacco Type: E-cigarettes / Vaping Second Hand Exposure: No; Hx Alcohol Use: No Hx Substance Use: No Preferred Language: French Communication Ability: Effective Reefer Engineer Required: No Beliefs That Will Affect Care: None Current Living Situation: Family and Significant Other current occupational status: employed 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 Feels Safe at Home: Yes Assistive Devices: None Allergies Allergies Allergy/AdvReac Type Severity Reaction Status Date / Time levofloxacin Allergy Severe Anaphylaxis Verified 08/26/19 22:53 hydrocodone Allergy Intermediate SWELLING Verified 08/26/19 22:53 IN FEET tramadol AdvReac Intermediate EMOTIONAL Verified 08/26/19 22:53 Home Meds Home Medications Medication Instructions Recorded Confirmed buprenorphine-naloxone 1 tab SUBLINGUAL BID 07/31/19 02/05/20 gabapentin 800 mg PO QID 07/31/19 02/05/20 Results & Data (ED) Vital Signs Vital Signs - 24 hr 02/05/20 02:00 02/05/20 03:57 Temperature 36.6 C Temperature Source Oral Pulse Rate 72 Pulse Rate [Finger] 65 Respiratory Rate 16 18 Respiratory Effort / Characteristics Non-Labored Spontaneous Non-Labored Spontaneous Respiratory Depth Normal Normal Respiratory Pattern Regular Blood Pressure 126/83 Blood Pressure [Right Arm] 109/64 Blood Pressure Mean 97 Blood Pressure Mean [Right Arm] 79 Blood Pressure Position Sitting Pulse Oximetry 98 98 Oxygen Delivery Method Room Air Room Air Sepsis Recent Fever Within 48 Hours No Sepsis New/Unexplained Change in Mental Status No Sepsis Action Taken by Nursing No Action Required Laboratory Data Result diagrams: 02/05/20 02:34 02/05/20 02:34 Lab Results 02/05/20 02/05/20 02/05/20 Range/Units 02:20 02:20 02:34 WBC 7.28 (4.8-10.8) K/uL RBC 4.55 L (4.7-6.1) M/uL Hgb 13.2 L (14.0-18.0) g/dL Hct 40.0 L (42-52) % MCV 87.9 (80-100) fL MCH 29.0 (25-34) pg MCHC 33.0 (32-36) g/dL RDW Std Deviation 44.7 (36.4-46.3) fL RDW Coeff of Ariadne 13.8 (11.5-14.5) % Plt Count 291 (130-400) K/uL MPV 9.4 (7.4-10.4) fL Immature Gran % (Auto) 0.1 % Neut % (Auto) 49.6 % Lymph % (Auto) 42.7 % Kendall % (Auto) 6.0 % Eos % (Auto) 1.2 % Baso % (Auto) 0.4 % Neut # (Auto) 3.60 (1.4-6.5) K/uL Lymph # (Auto) 3.11 (1.2-3.4) K/uL Kendall # (Auto) 0.44 (0.11-0.59) K/uL Eos # (Auto) 0.09 (0-0.5) K/uL Baso # (Auto) 0.03 (0-0.2) K/uL Immature Gran # (Auto) 0.01 (0.00-0.02) K/uL Sodium (136-145) mmol/L Potassium (3.5-5.1) mmol/L Chloride (98-107) mmol/L Carbon Dioxide (21-32) mmol/L Anion Gap (3-11) BUN (7-18) mg/dl Creatinine (0.6-1.4) mg/dl Est Cr Clr Drug Dosing ml/min Est GFR ( Amer) Est GFR (Non-Af Amer) BUN/Creatinine Ratio (10-20) Glucose (70-99) mg/dl Calcium (8.5-10.1) mg/dl Total Bilirubin (0.2-1) mg/dl AST (15-37) U/L ALT (12-78) U/L Alkaline Phosphatase (45-117) U/L Total Protein (6.4-8.2) gm/dl Albumin (3.4-5.0) gm/dl Globulin (2.5-4.0) gm/dl Albumin/Globulin Ratio (0.9-2) TSH (0.300-4.500) uIu/ml Urine Color Dark Yellow Urine Appearance Clear (Clear) Urine pH 5.0 (4.5-7.5) Ur Specific [place] 1.045 H (1.000-1.030) Urine Protein Trace H (Negative) Urine Glucose (UA) Negative (Negative) Urine Ketones Negative (Negative) Urine Blood Negative (Negative) Urine Nitrite Negative (Negative) Urine Bilirubin Negative (Negative) Urine Urobilinogen Negative (Negative) Ur Leukocyte Esterase Negative (Negative) Urine WBC (Auto) 1-5 (0-5) /hpf Urine RBC (Auto) 0-4 (0-4) /hpf U Hyaline Cast (Auto) 10-30 H (0-5) /lpf U Epithel Cells (Auto) 10-20 H (0-5) /lpf Urine Bacteria (Auto) Negative (Negative) Salicylates (2.8-20) mg/dl Urine Opiates Screen Neg (Neg) Ur Methadone, Qual Neg (Neg) Acetaminophen (10-30) ug/ml Urine Barbiturates Neg (Neg) Ur Phencyclidine (PCP) Neg (Neg) U Amphetamin/Meth Scrn Pos H (Neg) MDMA (Ecstasy) Screen Pos H (Neg) U Benzodiazepines Scrn Neg (Neg) Ur Cocaine Metabolite Neg (Neg) U Marijuana (THC) Screen Pos H (Neg) Ethyl Alcohol mg/dL (0-3) mg/dl 02/05/20 02/05/20 02/05/20 Range/Units 02:34 02:34 02:34 WBC (4.8-10.8) K/uL RBC (4.7-6.1) M/uL Hgb (14.0-18.0) g/dL Hct (42-52) % MCV (80-100) fL MCH (25-34) pg MCHC (32-36) g/dL RDW Std Deviation (36.4-46.3) fL RDW Coeff of Ariadne (11.5-14.5) % Plt Count (130-400) K/uL MPV (7.4-10.4) fL Immature Gran % (Auto) % Neut % (Auto) % Lymph % (Auto) % Kendall % (Auto) % Eos % (Auto) % Baso % (Auto) % Neut # (Auto) (1.4-6.5) K/uL Lymph # (Auto) (1.2-3.4) K/uL Kendall # (Auto) (0.11-0.59) K/uL Eos # (Auto) (0-0.5) K/uL Baso # (Auto) (0-0.2) K/uL Immature Gran # (Auto) (0.00-0.02) K/uL Sodium 143 (136-145) mmol/L Potassium 3.8 (3.5-5.1) mmol/L Chloride 109 H (98-107) mmol/L Carbon Dioxide 30 (21-32) mmol/L Anion Gap 4.0 (3-11) BUN 21 H (7-18) mg/dl Creatinine 1.12 (0.6-1.4) mg/dl Est Cr Clr Drug Dosing 64.8 ml/min Est GFR ( Amer) 98.1 Est GFR (Non-Af Amer) 84.7 BUN/Creatinine Ratio 18.4 (10-20) Glucose 97 (70-99) mg/dl Calcium 8.9 (8.5-10.1) mg/dl Total Bilirubin 0.4 (0.2-1) mg/dl AST 24 (15-37) U/L ALT 25 (12-78) U/L Alkaline Phosphatase 84 (45-117) U/L Total Protein 7.6 (6.4-8.2) gm/dl Albumin 4.2 (3.4-5.0) gm/dl Globulin 3.4 (2.5-4.0) gm/dl Albumin/Globulin Ratio 1.2 (0.9-2) TSH 1.190 (0.300-4.500) uIu/ml Urine Color Urine Appearance (Clear) Urine pH (4.5-7.5) Ur Specific [place] (1.000-1.030) Urine Protein (Negative) Urine Glucose (UA) (Negative) Urine Ketones (Negative) Urine Blood (Negative) Urine Nitrite (Negative) Urine Bilirubin (Negative) Urine Urobilinogen (Negative) Ur Leukocyte Esterase (Negative) Urine WBC (Auto) (0-5) /hpf Urine RBC (Auto) (0-4) /hpf U Hyaline Cast (Auto) (0-5) /lpf U Epithel Cells (Auto) (0-5) /lpf Urine Bacteria (Auto) (Negative) Salicylates < 1.7 L (2.8-20) mg/dl Urine Opiates Screen (Neg) Ur Methadone, Qual (Neg) Acetaminophen < 2 L (10-30) ug/ml Urine Barbiturates (Neg) Ur Phencyclidine (PCP) (Neg) U Amphetamin/Meth Scrn (Neg) MDMA (Ecstasy) Screen (Neg) U Benzodiazepines Scrn (Neg) Ur Cocaine Metabolite (Neg) U Marijuana (THC) Screen (Neg) Ethyl Alcohol mg/dL < 3.0 (0-3) mg/dl Discharge Plan Visit Data Chief Complaint: Mental Health Evaluation Stated Complaint: MENTAL HEALTH ED Provider: Yusra Elder Discharge Problem: Mood disorder Forms Stand Alone Forms: [facility], Suicide Prevention Resources Prescriptions Prescriptions: No Action gabapentin 800 mg tablet 800 mg PO QID RF: 0 buprenorphine-naloxone 8-2 mg tablet, sublingual 1 tab SUBLINGUAL BID RF: 0
[2020-02-05 02:39] LABS: Appearance Urine Clear (Clear); Bacteria Urine Automated Negative (Negative); Bilirubin Urine Negative (Negative); Blood Urine Negative (Negative); Color Urine Dark Yellow; Glucose Urine UA Negative (Negative); Ketones Urine Negative (Negative); Leukocyte Esterase Urine Negative (Negative); Nitrite Urine Negative (Negative); Protein Urine Trace (Negative); RBC Urine Automated 0-4 /hpf (0-4); Specific Gravity Urine 1.045 (1.000-1.030); Urobilinogen Urine Negative (Negative)
[2020-02-05 02:48] LABS: Basophils # (auto) 0.03 K/uL (0-0.2); Basophils % (auto) 0.4 %; Eosinophils # (auto) 0.09 K/uL (0-0.5); Eosinophils % (auto) 1.2 %; Hemoglobin 13.2 g/dL (14.0-18.0); Immature Granulocytes # (auto) 0.01 K/uL (0.00-0.02); Immature Granulocytes % (auto) 0.1 %; Lymphocytes # (auto) 3.11 K/uL (1.2-3.4); Lymphocytes % (auto) 42.7 %; Mean Corpuscular Volume 87.9 fL (80-100); Mean Platelet Volume 9.4 fL (7.4-10.4); Monocytes # (auto) 0.44 K/uL (0.11-0.59); Neutrophils % (auto) 49.6 %; Platelet Count 291 K/uL (130-400); RDW Coefficient of Variation 13.8 % (11.5-14.5); RDW Standard Deviation 44.7 fL (36.4-46.3); Red Blood Count 4.55 M/uL (4.7-6.1); White Blood Count 7.28 K/uL (4.8-10.8)
[2020-02-05 03:10] LABS: Albumin Level 4.2 gm/dl (3.4-5.0); BUN Creatinine Ratio 18.4 (10-20); Calcium 8.9 mg/dl (8.5-10.1); Creatinine Clr Calc Pharmacy 64.8 ml/min; Est GFR (African American) 98.1; Est GFR (Non-African American) 84.7; Potassium 3.8 mmol/L (3.5-5.1)
[2020-02-05 03:10] LABS: Amphetamines+Metham, Urine Pos (Neg); Barbiturates, Urine Neg (Neg); Benzodiazepine, Urine Neg (Neg); Cocaine, Urine Neg (Neg); MDMA (Ecstacy), Urine Pos (Neg); Methadone, Urine Neg (Neg); Opiate, Urine Neg (Neg); Phencyclidine, Urine Neg (Neg)
[2020-02-05 03:21] LABS: Albumin Globulin Ratio 1.2 (0.9-2); Bilirubin,Total 0.4 mg/dl (0.2-1); Globulin 3.4 gm/dl (2.5-4.0); Thyroid Stimulating Hormone 1.19 uIu/ml (0.300-4.500); Total Protein 7.6 gm/dl (6.4-8.2)
[2020-02-05 03:23] LABS: Acetaminophen < 2 ug/ml (10-30)
[2020-02-05 03:24] LABS: Salicylate < 1.7 mg/dl (2.8-20)
--- NOTE | 2020-02-05 11:06 | Emergency Department Note ---
ED Visit Note Signed out to me by Dr. Elder after being previously medically cleared. Patient was awaiting evaluation for psychiatric complaints bring him here. Does have a 302 petition/warrant with him at this time. chemical plant manager discussed with the patient who denied reports of homicidal thoughts. She discussed with his girlfriend who reports he had made suicidal thoughts recently and was found attempting to hang himself last week. Patient admits this but states it was an attempt to scare her and not an attempt to harm self. He does have significant history of prior suicide attempt by strangulation before. Given this I feel that further inpatient mental health treatment should be pursued. Patient is declining voluntary inpatient treatment. 302 to be completed. I have signed a 302 for this patient with girlfriends additional history of suicidal statements and actions. 3 S. referral to be made but they requested rapid cover test which is pending at this time. Signed out pending initiation of bed search to Dr. Douglas. Noted by nursing staff to be bradycardic although asymptomatic while resting EKG was obtained without significant abnormality beyond sinus bradycardia. Again is not significantly symptomatic. EK bpm sinus bradycardia. No PVC or PAC. No acute ST segment elevation or depression. Normal QTC. .
[2020-02-05] MEDS ORDERED: BUPRENORPHINE/NALOXONE 8/2 MG TAB SL ONE (15:36)
[2020-02-05] MEDS ORDERED: SODIUM CHLORIDE 0.65% NA SOLN 45 ML (OCEAN) PRN (16:24)
[2020-02-05] MEDS ORDERED: MAGNESIUM HYDROXIDE SUSP 30 ML UDC PO PRN (16:24)
[2020-02-05] MEDS ORDERED: ALUMINUM/MAGNESIUM SUSP 30 ML UDC PO PRN (16:24)
[2020-02-05] MEDS ORDERED: ACETAMINOPHEN 325 MG TAB PO PRN (16:24)
[2020-02-05] MEDS ORDERED: BISMUTH SUBSALICYLATE LIQD 236 ML PO PRN (16:24)
[2020-02-05] MEDS ORDERED: GABAPENTIN 800 MG TAB PO SCH (17:00)
--- NOTE | 2020-02-05 18:03 | Emergency Department Note ---
ED Visit Note Patient was seen initially and signed out to Dr. Bustos at the change of shift. During the signout process to me the patient was formally 302' D by Dr. Bustos after additional information was obtained. A bed search was performed and the patient was accepted to [address] [place] [address] after his COVID testing was negative. .
[2020-02-05] MEDS: GABAPENTIN 800 MG TAB PO SCH ×2 (20:56→22:27)
[2020-02-05] MEDS: NICOTINE 14 MG/24 HR PATCH TD SCH (20:56)
[2020-02-05] MEDS: BUPRENORPHINE/NALOXONE 8/2 MG TAB SL SCH (20:57)
[2020-02-05] MEDS ORDERED: NON-FORMULARY MEDICATION (Buprenorphine-Naloxone 1 TAB) SL SCH (21:00)
--- NOTE | 2020-02-06 06:11 | Electrocardiogram Report ---
Test Reason : Blood Pressure : / mmHG Vent. Rate : 049 BPM Atrial Rate : 049 BPM P-R Int : 148 ms QRS Dur : 100 ms QT Int : 476 ms P-R-T Axes : 080 077 076 degrees QTc Int : 429 ms Sinus bradycardia Otherwise normal ECG When compared with ECG of 26-AUG-2019 22:38, No significant change was found Confirmed by Montez Smith ([id number]) on 02/06/2020 6:11:32 AM Referred By: REFERRED SELF Confirmed By:Montez Smith
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
[2020-02-06] MEDS: GABAPENTIN 800 MG TAB PO SCH ×3 (09:07→20:35)
[2020-02-06] MEDS: NICOTINE 14 MG/24 HR PATCH TD SCH (09:07)
[2020-02-06] MEDS: BUPRENORPHINE/NALOXONE 8/2 MG TAB SL SCH ×2 (09:07→20:35)
[2020-02-06] MEDS: NICOTINE POLACRILEX 2 MG GUM MT PRN ×3 (10:40→18:05)
[2020-02-06] MEDS ORDERED: risperiDONE 1 MG TABLET PO PRN (14:45)
[2020-02-07] MEDS: NICOTINE POLACRILEX 2 MG GUM MT PRN ×6 (09:06→20:43)
[2020-02-07] MEDS: NICOTINE 14 MG/24 HR PATCH TD SCH (09:09)
[2020-02-07] MEDS: GABAPENTIN 800 MG TAB PO SCH ×3 (09:09→20:30)
[2020-02-07] MEDS: BUPRENORPHINE/NALOXONE 8/2 MG TAB SL SCH ×2 (09:36→20:31)
--- NOTE | 2020-02-07 13:30 | Psychiatric Progress Note ---
Date of Service February 07, 2020 Impression / Recommendations Impression 34 y/o M with a history of polysubstance abuse and substance induced mood disorder who presented with psychosis, suicide attempt, threats to kill his girlfriend and children, in the context of methamphetamine and cannabis abuse. He recently saw a psychiatrist through [facility] who told him his symptoms were secondary to his drug use, and was unwilling to consider inpatient rehab. A mandated CYS report will be made given his threats to kill his and his girlfriend's children, ongoing drug use, and nathan's 8 year old son interrupting his suicide attempt by hanging. Multiple meetings were held today to discuss discharge and safety planning. Patient's girlfriend reported she was planning to go to rehab herself. Pt was encouraged to do the same by our social work coordinator and CYS human services case manager. Pt agreed to rehab referrals at this time. He is denying acute mood concerns or continued hallucinations. As patient's mood symptoms are likely directly related to his substance use, this is supported by our team and seems to be the most appropriate next step for his treatment. Direct transfer to a rehab facility is recommended to prevent relapse and return to behavioral pattern that led to this admission. (1) Substance-induced psychotic disorder: 02/05 - Paranoia, hallucinations and delusions in context of meth abuse. Reviewed risk of ongoing drug use including psychotic and mood symptoms, health issues, organ damage, etc. Advised patient that my primary recommendation is for inpatient rehab, which he is refusing, "I can handle it." Advised of CYS report and need to coordinate with his girlfriend or collateral. CYS report made via website e-Referral ID: [id number], [id number], and [id number]. -Will order risperidone 1mg q 6 hrs prn psychosis for acute stabilization. -Get records from psychiatrist at [facility] and coordinate care. 02/06 - Pt is denying auditory and visual hallucinations - He is reality based in conversation and reports motivation to go to rehab - Will proceed with rehab referrals; no acute mood concerns at this time (2) Substance induced mood disorder: 02/05 - Mood and anxiety symptoms occurring in response to paranoia and delusions, fear of losing girlfriend, all of which stems from his substance use. No medications are indicated, primary treatment is to address addiction. 02/06 - Continue current medication regimen. Gabapentin taper was initiated, and can be continued as tolerated/indicated. MAT provider discussed that continuation of Suboxone is more appropriate option to target patient's chronic pain concerns. - Pt denies SI/HI and reports feeling ready for rehab referrals. He admits to feeling anxious about conversation with CYS, but feels wanting what is best for his children is motivating him to pursue rehab. - Pt is future oriented in conversation and able to contract for safety both on our unit and in the inpatient rehab setting (3) Methamphetamine abuse: 02/05 - As above, reviewed risks of ongoing drug use, and recommendations for rehab. - Concerned about use of gabapentin due to abuse potential and ongoing polysubstance abuse. Called [facility] to review with prescribing PA, Shirley Osuna, to clarify indication and discuss concerns. Dr. Deniz Broderick returned the call stating he recommended gabapentin be discontinued, stating it was not essential, and was being used for pain, but that Suboxone is a better pain med. Patient has had multiple +UDS for meth and cocaine recently. 02/06 - Pt is now willing for rehab, will sent referral information to explore options (4) Opioid dependence: 02/05 - buprenorphine/naloxone 8-2mg bid - dose confirmed via PDMP, filling monthly and filled an additional #5 day prescription in December. (5) Polysubstance dependence: 02/05 - Long h/o polydrug abuse. Receiving MAT but no therapy or peer support groups. Recommendation is for inaptient rehab as above. 02/06 - Pt is now willing for rehab, will sent referral information to explore options (6) Nicotine abuse: 02/05 - Continue nicotine patch and gum for cravings. Risk Factors Assessment Male: Yes : Yes Do You Have Access To A Gun?: No Health Problems: No Mental Health Diagnoses: Yes Substance Use Disorders: Yes Previous Attempt: Yes Family History of Suicide: No Previous Psychiatric Hospitalization: Yes Hopelessness: Yes Smoker: Yes Protective Factors Assessment Ep[employer] Beliefs: No : No Responsible for Young Children: Yes Employed: Yes Stable Relationships: No Supportive Family: No Interval History Identifying Information NORRIS VERDUGO is a 34-year-old M who currently lives in [place] with his girlfriend and their children, has a history of polysubstance abuse and substance induced mood disorder, and was admitted on 02/05/20 16:24 on a 302 involuntary commitment for SI and HI with threats to shoot himself and his family. Chief Complaint "Um, so what's the deal. Can I get into rehab?" Review of Systems Notes Constitutional: denied Cardiovascular: denied Respiratory: denied Gastrointestinal: denied Neurological: denied Psychiatric: denies symptoms other than stated above Total of at least 10 systems reviewed, pertinent positives as above and in HPI. Sleep Information Total Hours of Sleep: 7.5 Meal Information Percent Meal Consumed - Breakfast: 100 Percent Meal Consumed - Lunch: 100 Percent Meal Consumed - Dinner: 100 Subjective Subjective Patient was seen & assessed and interval progress reviewed with nursing and social work. Staff report the patient has been in decent behavioral control. Unexpectedly, the patient rated his mood a 10/10 and "happy" last evening. CYS has previously been involved with patient, and we are recommended communication between patient and CYS prior to discharge. Several meetings occurred this afternoon in attempts to coordinate discharge/safety planning. Pt had meeting w farhana girlfriend, who states she is planning to go to rehab herself. Separate meeting held with CYS human services case manager. Pt was encouraged to go to rehab and reported his children were his motivation to do so. Pt was seen today to assess progress since admission. Pt states he is "ok", and reports willingness for rehab at this point. Pt was updated that a facility is able to do a pre- screening call with him shortly, which he was willing to do. Questions were asked to assess psychiatric stability. He is denying SI/HI and other acute safety concerns. He is future oriented in conversation and is able to contract for safety in the rehab setting. Pt denies auditory and visual hallucinations, specifically here on the unit. He does mention having "video evidence" that "my house is haunted." But otherwise denies any paranoia or concerns for psychotic symptoms. Pt denies other needs or concerns at this time and states he will plan to follow-up to complete the pre-screening for rehab referral. Physical Exam Psychiatric Orientation: alert, oriented x 3 and + guarded (superficially cooperative) Apperance: appropriately dressed and + disheveled; + inappropriately groomed and + did not appear stated age (appearing older than stated age) Eye Contact: + fair eye contact Motor Behavior: steady gait and station and no abnormal motor movements Speech: normal rate/rhythm/volume of speech Affect: + anxious affect Mood: + anxious mood; no depressed mood Thought Process: goal directed thought process and + concrete thought process Thought Content: + cognitive distortions (most likely consistent with substance use/addiction history ); not paranoid, no hopelessness and no worthlessness Suicidal Thoughts: denies suicidal thoughts and denies suicidal intent Homicidal Thoughts: denies homicidal thoughts and denies homicidal intent Hallucinations: no auditory hallucinations and no visual hallucinations Cognition: attention grossly intact and language grossly intact Estimated Intelligence: consistent with education level Insight: + poor insight (overall, though at least able to admit to need for rehab) Judgement: + poor judgement (overall, though at least able to commit to rehab referral) Vital Signs (Past 24 Hours) Last Vital Signs Temp 36.4 C L 02/07/20 06:56 Pulse 50 L 02/07/20 06:57 Resp 16 02/07/20 06:56 BP 121/83 02/07/20 06:57 Pulse Ox 98 02/05/20 17:21 Results & Data ([facility]) Current Inpatient Medications Current Inpatient Medications: Current Inpatient Medications Acetaminophen (Acetaminophen 325 Mg Tab) 650 mg PO Q4H PRN PRN Reason: Headache or Minor Fever Stop: 03/06/20 16:23 Al Hydrox/Mg Hydrox/Simethicone (Aluminum/Magnesium Susp 30 Ml Udc) 30 ml PO Q4H PRN PRN Reason: GI Upset Stop: 03/06/20 16:23 Bismuth Subsalicylate (Bismuth Subsalicylate Liqd 236 Ml) 15 ml PO PRN PRN PRN Reason: Loose Stool Stop: 03/06/20 16:23 Buprenorphine/Naloxone (Buprenorphine/Naloxone 8/2 Mg Tab) 1 tab SL BID MALCOLM Stop: 03/06/20 20:59 Last Admin: 02/07/20 09:36 Dose: 1 tab Documented by: Gabapentin (Gabapentin 800 Mg Tab) 800 mg PO TID MALCOLM Stop: 03/07/20 20:59 Last Admin: 02/07/20 13:22 Dose: 800 mg Documented by: Hydroxyzine HCl (Hydroxyzine Hcl 25 Mg Tab) 50 mg PO HSZ PRN PRN Reason: Insomnia Stop: 03/06/20 16:23 Hydroxyzine HCl (Hydroxyzine Hcl 25 Mg Tab) 25 mg PO Q4H PRN PRN Reason: Anxiety Stop: 03/06/20 16:23 Magnesium Hydroxide (Magnesium Hydroxide Susp 30 Ml Udc) 30 ml PO DAILY PRN PRN Reason: Constipation Stop: 03/06/20 16:23 Miscellaneous (Remove Nicoderm Patch) 1 ea N/A DAILY@0859 [facility] Stop: 03/07/20 08:58 Last Admin: 02/07/20 09:09 Dose: 1 ea Documented by: Nicotine (Nicotine 14 Mg/24 Hr Patch) 14 mg TD QAM [facility] Stop: 03/06/20 19:14 Last Admin: 02/07/20 09:09 Dose: 14 mg Documented by: Nicotine Polacrilex (Nicotine Polacrilex 2 Mg Gum) 1 piece MT PRN PRN PRN Reason: nicotine cravings Stop: 03/07/20 10:27 Last Admin: 02/07/20 13:22 Dose: 1 piece Documented by: Risperidone (Risperidone 1 Mg Tablet) 1 mg PO Q6H PRN PRN Reason: psychosis Stop: 03/07/20 14:44 Sodium Chloride (Sodium Chloride 0.65% Na Soln 45 Ml (Dare)) 1 - 2 sprays NA PRN PRN PRN Reason: Nasal Dryness/Congestion Stop: 03/06/20 16:23 Mental Health & Subst Abuse Tx Psychiatrist Name of Psychiatrist: Antonio Epperson Psychiatrist's Date of Appointment with Psychiatrist: 02/20/20 Time of Appointment with Psychiatrist: 11:30 a.m. Psychiatric Appointment Comment: Telehealth Therapist Name of Therapist: Abi Maguire Therapist's Date of Therapist Appointment: 02/13/20 Time of Therapist Appointment: 2:00 p.m. Therapy Appointment Comment: Telehealth (will email you directions) Snowblower Mechanic Name of Snowblower Mechanic: VERONICA [employer] Server Deisy Allred Phone Number for Snowblower Mechanic: [phone] Post Discharge Appointments Other #1: Name of Aftercare Appointment: [facility] Phone Number of Aftercare Appointment: Time of Aftercare Appointment: Follow up per your schedule Aftercare Appointment Comment: [address] ([place] [address]) Contact Information Discharge Discharge Address: [address] [place] [address], [place] [address]
--- NOTE | 2020-02-08 09:22 | Discharge Summary ---
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 F15.10 Opioid dependence F11.20 Polysubstance dependence F19.20 Nicotine abuse Z72.0
[2020-02-08] MEDS: NICOTINE POLACRILEX 2 MG GUM MT PRN ×2 (09:30→11:48)
[2020-02-08] MEDS: GABAPENTIN 800 MG TAB PO SCH (09:31)
[2020-02-08] MEDS: BUPRENORPHINE/NALOXONE 8/2 MG TAB SL SCH (09:31)
[2020-02-08] MEDS: NICOTINE 14 MG/24 HR PATCH TD SCH (09:32)
[2020-02-09 08:40] LABS: Amphetamine Urine, Confirm >15000 ng/mL (<250); MDA negative; MDEA negative; MDMA (Ecstasy) Urine, Confirm negative; Marijuana Quant, GCMS Urine 1160 ng/mL (<5); Methamphetamine, Ur Confirm >15000 ng/mL (<250)
[2020-02-11 20:00] LABS: Synthetic Cannabinoid Qual Ur NEGATIVE (Negative)
== END 2020-02-08 12:55 | disposition alcohol treatment (31) | DRG 897 ==
LOC: ED 01:56 → 3S 16:24